=== PATIENT | female | born 1955 | race Hispanic/Latino ===

== ENCOUNTER → 2023-05-28 | Outpatient (REF) | payer MEDICARE ==
[~2023-05-28] MED LIST: FIBER CHOICE; Z.0.LEVOTHYROXINE25
== END ==
LOC: MAMMO 09:09
PROVIDERS: ATTEND Family Medicine
DX: Z12.31 Encounter for screening mammogram for malignant neoplasm of breast (principal)
CPT/HCPCS: 77067

== ENCOUNTER → 2024-08-29 | Outpatient (REF) | payer MEDICARE | LOC: MAMMO 10:26 | PROVIDERS: ATTEND Family Medicine | DX: Z12.31 Encounter for screening mammogram for malignant neoplasm of breast (principal) | CPT/HCPCS: 77067 ==